=== PATIENT | female | born 1935 | race Caucasian/White ===

== ENCOUNTER 2017-07-13 18:42 | Emergency (ER) | payer MEDICAID, OTHER ==
[~2017-07-13] VITALS: Ht 162.6 cm; Wt 57.5 kg
[2017-07-13 18:48] VITALS: Ht 162.6 cm; Wt 57.5 kg
[2017-07-13] MEDS ORDERED: ONDANSETRON 4 MG INJ IV STA (19:51)
[2017-07-13] MEDS ORDERED: SOD CHLORIDE 0.9% 1,000 ML IV STA (19:51)
[2017-07-13 20:17] LABS: BASOPHILS % 0.8 % (0.0-2.0); EOSINOPHILS # 0.1 10^3/ul (0.0-0.5); EOSINOPHILS % 1.5 % (0.0-7.0); HEMATOCRIT 39.9 % (37.0-47.0); HEMOGLOBIN 13.9 g/dl (12.0-16.0); LYMPHOCYTES # 0.9 10^3/ul (0.8-2.9); LYMPHOCYTES % 21.6 % (15.0-51.0); MEAN CORPUSCULAR HGB CONC 34.8 g/dl (32.0-37.0); MEAN CORPUSCULAR VOLUME 97.6 fl (82.0-101.0); MEAN PLATELET VOLUME 11.5 fl (7.4-10.4); MONOCYTE # 0.3 10^3/ul (0.3-0.9); MONOCYTES % 8.1 % (0.0-11.0); NEUTROPHILS % 67.5 % (39.0-77.0); PLATELET COUNT 171 10^3/UL (140-415); RED BLOOD COUNT 4.09 10^6/ul (4.20-5.40); RED CELL DISTRIBUTION WIDTH 12.3 % (11.5-14.5); WHITE BLOOD COUNT 3.9 10^3/ul (4.8-10.8)
[2017-07-13] MEDS ORDERED: LOSA50TA6 PO (20:29)
[2017-07-13] MEDS ORDERED: CLOP75TA4 PO (20:29)
[2017-07-13] MEDS ORDERED: DIGO250T PO (20:30)
[2017-07-13 20:36] LABS: ALANINE AMINOTRANSFERASE 43 IU/L (13-69); ALBUMIN 3.7 g/dl (3.3-4.9); ALBUMIN/GLOBULIN RATIO 1.19; ALKALINE PHOSPHATASE 98 IU/L (42-121); ANION GAP 19 (8-16); ASPARTATE AMINO TRANSFERASE 25 IU/L (15-46); BILIRUBIN,INDIRECT 0.3 mg/dl (0-1.1); BILIRUBIN,TOTAL 0.3 mg/dl (0.2-1.3); BLOOD UREA NITROGEN 17 mg/dl (7-20); CALCIUM 8.7 mg/dl (8.4-10.2); CARBON DIOXIDE 28 mmol/L (21-31); CHLORIDE 97 mmol/L (97-110); CREATININE 0.75 mg/dl (0.44-1.00); GLUCOSE 116 mg/dl (70-220); INR 1.01; POTASSIUM 4.5 mmol/L (3.5-5.1); PROTIME 13.3 Sec (12.2-14.2); SODIUM 139 mmol/L (135-144); TOTAL PROTEIN 6.8 g/dl (6.1-8.1)
[2017-07-13 20:37] LABS: PARTIAL THROMBOPLASTIN TIME 27.5 Sec (25.0-35.0)
[2017-07-13] MEDS ORDERED: [UNRECOGNIZED DRUG - OTHER] PO (20:45)
[2017-07-13] MEDS ORDERED: PHEN100C PO (20:47)
[2017-07-13] MEDS ORDERED: [UNRECOGNIZED DRUG - OTHER] PO (20:49)
--- NOTE | 2017-07-13 20:52 | ERD ---
ER Documentation Chief Complaint Date/Time DATE: 07/13/17 TIME: 20:48 Chief Complaint weakness, lack of appetite, nausea HPI 82-year-old female comes in with her family for feeling a little weaker than usual and more tired. Also has less appetite and nausea with no vomiting. This all started today. She has no abdominal pain or chest pain. She has had no fever and chills. ROS All systems reviewed and are negative except as per history of present illness. Medications Home Meds Reported Medications [Ceretec 75MG] No Conflict Check, 75 MG PO DAILY (CINARIZINA) 07/13/17 Phenytoin* Sodium Extended (Dilantin*) 100 Mg Capsule, 100 MG PO BID, CAP (FENITONIA SODICA) 07/13/17 [Trankitec 200MG] No Conflict Check, 200 MG PO BID (VALPROATO DE MAGNESIO) 07/13/17 Digoxin* (Digitek*) 250 Mcg Tablet, 0.25 MG PO DAILY, TAB (VIDAXIL) 07/13/17 Clopidogrel Bisulfate* (Clopidogrel Bisulfate*) 75 Mg Tablet, 75 MG PO DAILY, # 30 TAB 07/13/17 Losartan Potassium* (Losartan Potassium*) 50 Mg Tablet, 50 MG PO BID, TAB (LOPRED) 07/13/17 Allergies Allergies: Coded Allergies: No Known Allergy (Unverified , 07/13/17) PMhx/Soc History of Surgery: No Anesthesia Reaction: No Hx Neurological Disorder: Yes (CVA) Hx Respiratory Disorders: No Hx Cardiac Disorders: Yes (HTN) Hx Psychiatric Problems: No Hx Miscellaneous Medical Probl: No Hx Alcohol Use: Yes (quit years ago) Hx Substance Use: No Hx Tobacco Use: No Smoking Status: Never smoker Physical Exam Vitals Vital Signs Date Time Temp Pulse Resp B/P Pulse Ox O2 Delivery O2 Flow Rate FiO2 07/13/17 21:19 42 20 118/60 97 07/13/17 18:48 97.8 56 20 124/66 97 Physical Exam Const: [] No distress, talkative Head: Atraumatic Eyes: Normal Conjunctiva ENT: Normal External Ears, Nose and Mouth. Neck: Full range of motion..~ No meningismus. Resp: Clear to auscultation bilaterally Cardio: Regular rate and rhythm, no murmurs Abd: Soft, non tender, non distended. Normal bowel sounds Skin: No petechiae or rashes Ext: No cyanosis, or edemaDistal pulses intact bilateral lower extremities Neur: Awake and alertAnd oriented 3, cranial 2 through 12 intact, no cerebellar deficits, Psych: Normal Mood and Affect Result Diagram: 07/13/17200907/13/172009 Results 24 hrs Laboratory Tests Test 07/13/17 20:10 07/13/17 20:40 White Blood Count 3.910^3/ul Red Blood Count 4.0910^6/ul Hemoglobin 13.9g/dl Hematocrit 39.9% Mean Corpuscular Volume 97.6fl Mean Corpuscular Hemoglobin 34.0pg Mean Corpuscular Hemoglobin Concent 34.8g/dl Red Cell Distribution Width 12.3% Platelet Count 03032^3/UL Mean Platelet Volume 11.5fl Neutrophils % 67.5% Lymphocytes % 21.6% Monocytes % 8.1% Eosinophils % 1.5% Basophils % 0.8% Nucleated Red Blood Cells % 0.0/100WBC Neutrophils # (Manual) 2.710^3/ul Lymphocytes # 0.910^3/ul Monocytes # 0.310^3/ul Eosinophils # 0.110^3/ul Basophils # 0.010^3/ul Nucleated Red Blood Cells # 0.010^3/ul Prothrombin Time 13.3Sec Prothrombin Time Ratio 1.0 INR International Normalized Ratio 1.01 Activated Partial Thromboplast Time 27.5Sec Sodium Level 139mmol/L Potassium Level 4.5mmol/L Chloride Level 97mmol/L Carbon Dioxide Level 28mmol/L Anion Gap 19 Blood Urea Nitrogen 17mg/dl Creatinine 0.75mg/dl Glucose Level 116mg/dl Lactic Acid Level 1.7mmol/L Calcium Level 8.7mg/dl Total Bilirubin 0.3mg/dl Direct Bilirubin 0.00mg/dl Indirect Bilirubin 0.3mg/dl Aspartate Amino Transf (AST/SGOT) 25IU/L Alanine Aminotransferase (ALT/SGPT) 43IU/L Alkaline Phosphatase 98IU/L Troponin I < 0.012ng/ml Total Protein 6.8g/dl Albumin 3.7g/dl Globulin 3.10g/dl Albumin/Globulin Ratio 1.19 Urine Color YELLOW Urine Clarity SLIGHTLY CLOUDY Urine pH 7.0 Urine Specific [place] 1.008 Urine Ketones NEGATIVEmg/dL Urine Nitrite NEGATIVEmg/dL Urine Bilirubin NEGATIVEmg/dL Urine Urobilinogen NEGATIVEmg/dL Urine Leukocyte Esterase 3+Patsy/ul Urine Microscopic RBC 4/HPF Urine Microscopic WBC 55/HPF Urine Squamous Epithelial Cells FEW/HPF Urine Bacteria FEW/HPF Urine Hemoglobin 1+mg/dL Urine Glucose NEGATIVEmg/dL Urine Total Protein NEGATIVEmg/dl Current Medications Medications (Trade) Dose Ordered Sig/Migue Route PRN Reason Start Time Stop Time Status Last Admin Dose Admin Sodium Chloride (NS) 1,000 ml @ 1,000 mls/hr Q1H STAT IV 07/13/17 19:51 07/13/17 20:50 DC 07/13/17 20:20 Ondansetron HCl 4 mg 4 mg ONCE STAT IV 07/13/17 19:51 07/13/17 19:55 DC 07/13/17 20:20 Cefepime HCl 50 ml @ 100 mls/hr ONCE ONCE IVPB 07/13/17 22:00 07/13/17 22:29 DC 07/13/17 22:00 Cefepime HCl (Maxipime 1gm/50 ml (Pmx)) 50 ml @ ud STK-MED ONCE .ROUTE 07/13/17 21:38 07/13/17 21:39 DC Procedures/MDM UTI an elderly female causing fatigue and generalized weakness. She is feeling better in the emergency room after hydration.She is very well-appearing sitting up on side of the edge of the bed and ambulating well in the emergency room.No signs of cardiac dysfunction or any other serious acute abnormality. She has complicated secondary to age and other symptoms. Going to discharge her with Levaquin. Zofran as well in case she develops nausea. Primary care follow-up on Monday and return precautions to ER for any fevers or concerning symptoms. EKG interpretation: Normal sinus rhythm rate of 89, normal axis, no ST or T- wave changes concerning for acute ischemia, normal intervals. front desk monitor interpretation: Normal sinus rhythm without arrhythmia Departure Diagnosis: Primary Impression: Complicated UTI (urinary tract infection) Additional Impression: Generalized weakness Condition: Stable CANDELARIA JONAS DO Jul 13, 2017 20:52
[2017-07-13 20:55] LABS: TROPONIN-I < 0.012 ng/ml (0.00-0.12)
[2017-07-13 21:20] LABS: ADD UMIC YES; UR ASCORBIC ACID NEGATIVE (NEGATIVE); UR BACTERIA FEW /HPF (NONE SEEN); UR BILIRUBIN (Dip) NEGATIVE (NEGATIVE); UR BLOOD (Dip) 1+ mg/dL (NEGATIVE); UR CLARITY SLIGHTLY CLOUDY (CLEAR); UR COLOR YELLOW (YELLOW); UR GLUCOSE (Dip) NEGATIVE (NEGATIVE); UR KETONES (Dip) NEGATIVE (NEGATIVE); UR LEUKOCYTE ESTERASE (Dip) 3+ Leu/ul (NEGATIVE); UR NITRITE (Dip) NEGATIVE (NEGATIVE); UR RBC 4 /HPF (0-5); UR SPECIFIC GRAVITY (Dip) 1.008 (1.003-1.030); UR SQUAMOUS EPITHELIAL CELL FEW /HPF (FEW); UR TOTAL PROTEIN (Dip) NEGATIVE (NEGATIVE); UR UROBILINOGEN (Dip) NEGATIVE (NEGATIVE); UR WBC CLUMPS FEW /HPF (NONE SEEN)
[2017-07-13] MEDS ORDERED: CEFEPIME 1GM/50 ML (PMX) 50 ML ONE (21:38)
[2017-07-13] MEDS ORDERED: CEFEPIME 1GM/50 ML (PMX) 50 ML IVPB ONE (22:00)
[2017-07-13] MEDS ORDERED: LEVO500T72 PO (23:28)
[2017-07-13] MEDS ORDERED: ONDA4TAB14 PO (23:28)
[2017-07-13 23:32] VITALS: BP 124/60; PULSE 60; RESP 20; TEMP 98
--- NOTE | 2017-07-14 00:36 | RADRPT ---
PROCEDURE: XR Chest. CLINICAL INDICATION: Abdominal pain TECHNIQUE: Single AP portable chest. COMPARISON: No prior Chest x-ray FINDINGS: Mild cardiomegaly. Atherosclerotic calcification of the aorta. The lungs are clear without pleura l effusion or focal consolidation. No pneumothorax. The osseous structures and soft tissues are unre markable. IMPRESSION: 1. No evidence for active cardiopulmonary disease. RPTAT:AAJJ Romulo Otto Physician Date Time Electronically viewed and signed by Romulo Otto Physician on 07/14/2017 00:36 DUARTE/
== END 2017-07-13 23:33 | disposition home or self-care (01) ==
LOC: E/R 18:42
DX: N39.0 Urinary tract infection, site not specified (principal); I10 Essential (primary) hypertension; R07.9 Chest pain, unspecified; R11.0 Nausea
CPT/HCPCS: 36415; 71010; 80053; 81001; 83605; 84484; 85025; 85610; 85730; 93005; 96374; J0692; J2405; J7030; Z7502